=== PATIENT | male | born 1985 | race Caucasian/White ===

== ENCOUNTER 2016-10-27 22:11 | Emergency (ER) | payer SELFPAY ==
--- NOTE | 2016-10-27 22:57 | ERNOTE ---
Abdominal HPI - Narrative Date of Service: 10/27/16 - General Chief Complaint: Abdominal Pain Time Seen by Provider: 10/27/16 22:56 Source: patient - Immun/Allergies/Home Medications Immunizatons: IMMUNIZATION HX Immunizations Up to Date Yes History of Influenza Vaccine No Hx Pneumococcal Vaccination No Allergies/Adverse Reactions: Allergies No Known Allergies Allergy (Unverified 11/09/15 18:25) Home Medications: HOME MEDICATIONS Lorazepam [Ativan] 2 mg PO BID 10/27/16 [Last Taken Unknown] lamoTRIgine [Lamictal] 150 mg PO DAILY 10/27/16 [Last Taken Unknown] Dicyclomine HCl [Bentyl] 20 mg PO TID PRN #20 tablet 10/28/16 [Last Taken Unknown] - History of Present Illness Narrative: C/O O"GALLBLADDER PROBLEMS". says he ws at [facility] 3 weeks ago and was told he had gall stones . Says that ever since he got up today he has had ruq abd pain with nausea and v x 1 says at first he wasn't eating anything then about 1 hour ago decided to have a cheeseburger which did not help at all. Denies any meds. no known fever . Never had any surgery. Says he needs a work note . He has not made arrangements for f?u with anyone and may have had some similar symptoms that were not diagnosed as gallstones at that time. Review of Systems - Review of Systems Constitutional: Present: See HPI Gastrointestinal/Abdominal: Present: See HPI, nausea, vomiting, abdominal pain Genitourinary: Present: no symptoms reported Musculoskeletal: Present: no symptoms reported Skin: Present: no symptoms reported Psych: Present: anxiety All Other Systems: All systems neg except as marked - Patient's Past Medical History Patient History - Medical: No pertinent hx Patient History - Cardiac/Respiratory: No pertinent hx Patient History - Cancer: No Hx of Cancer Patient History - Surgical Procedures: No surgical history Patient History - Other: None - Social History Living Situations: alone Psych History: Hx of Anxiety, Hx of Depression Smoking Status: Current every day smoker Patient requests Smoking Cessation Consult: No Initiate information on Smoking Cessation: No Alcohol Use: rarely Drug Use: none - Immunizations Immunizations Up to Date: Yes Hx Pneumococcal Vaccination: No History of Influenza Vaccine: No Physical Exam - Physical Exam General Appearance: Present: wd/wn, alert, mild distress - holding right abd with right arm. Respiratory: Present: no respiratory distress, normal breath sounds, no accessory muscle use, chest nontender, lungs clear Cardiovascular/Chest: Present: regular rate, rhythm, no murmur, normal peripheral pulses Gastrointestinal/Abdominal: Present: normal bowel sounds, nontender, nondistended, soft, no organomegaly, tenderness - ruq tenderness, guarding. Absent: rebound Back Exam: Present: normal inspection, no CVA tenderness Skin Exam: Present: normal color. Absent: jaundice ED Progress - Results and Orders Patient's Lab Results:: I have reviewed the patient's lab results. Results and Orders: CBC AND CRP ARE NORMAL. CMP WITH GLU = 143 BUT LFT'S AND LIPASE ARE NORMAL. - Vital Signs Patient's Vital Signs:: I have reviewed the patient's vital signs. Vital Signs: Vital Signs 10/27/16 22:18 Temperature 36.7 C Pulse Rate 100 Respiratory 18 Rate Blood Pressure 141/99 O2 Sat by Pulse 100 Oximetry - CT/Ultrasound CT/Ultrasound Narrative: CT ABD /PEL PER ARGUS = WITH CONTRACTED GALLBLADDER WITH STONES . NO OTHER ABNORMALITY - Progress/Reassessment Chief Complaint: Abdominal Pain - Transfer of Care Brief History: RECORDS WERE OBTAINED FROM HIS [facility] ER VISIT ON 10 OCT 2016 WITH WBC = 13.2 AND NL DIFF. CMP = GLUC 146 AND NL. LFT'S AND ANGIE/LIP. 3 VIEW ABD = NL. ( WITH REFERENCE TO OLD CT ABD/PEL DONE 09/01/15). [place].S. GALLBLADDER = CHOLELITHIAISISBUT NO WALL THICKENING OR FLUID. . NO BILE DUCT DILATATION ( 4MM COMMON DUCT). STONE IN GALLBLADDER NECK IS NOT MOBILE. NO OTHER FINDINGS. Departure - Departure Clinical Impression: Abdominal pain Qualifiers: Abdominal location: right upper quadrant Qualified Code(s): R10.11 - Right upper quadrant pain Disposition: Home Follow Up Needed Condition: Fair Instructions: DASH Eating Plan, Cholelithiasis, Kgra-[id number], Biliary Colic, Hyperglycemia, [id number], Abdominal Pain, Adult, [id number], Hypertension, [id number]-og-Qtda, Low-Fat Diet for Pancreatitis or Gallbladder Conditions Additional Instructions: BECAUSE OF YOUR PERSISTENT GALLBLADDER SYMPTOMS YOU MAY WANT TO GET A REFERRAL TO A SURGEON BY YOUR FAMILY DOCTOR FOR DEFINITIVE TREATMENT OF THIS PROBLEM THOUGH THERE IS NO SIGN OF NEEDING ACUTE INTERVENTION TODAY. SINCE YOUR BLOOD SUGAR HAS BEEN CONSISTENTLY ELEVATED BUT ONLY IN 140 RANGE YOU SHOULD DISCUSS THIS WITH YOUR FAMILY DOCTOR WHO MAY SUGGEST FURTHER EVALUATION AND TREATMENT OF A "PRE-DIABETIC " STATE. USE CLEAR LIQUID DIET FOR THE NEXT 24 HOURS THEN INCREASE TO A LOW FAT DIET WHEN FEELING BETTER. TRIAL OF BENTYL FOR THE DISCOMFORT. I WILL ALSO GIVE YOU SOME ZOFRAN YOU HAVE HAD RECENT VOMITING AND IT COULD RECUR IN THE FUTURE. Referrals: Gerard Liu MD [Primary Care Provider] - Prescriptions: Dicyclomine HCl [Bentyl] 20 mg PO TID PRN #20 tablet PRN Reason: ABDOMINAL PAIN
[2016-10-27] MEDS ORDERED: NORMAL SALINE 1,000 ML IV ONE (23:10)
[2016-10-27] MEDS ORDERED: ONDANSETRON HCL/PF 2 MG/ML VIAL IV ONE (23:10)
[2016-10-27] MEDS ORDERED: KETOROLAC TROMETHAMINE 30 MG/ML VIAL IV ONE (23:11)
[2016-10-27 23:21] LABS: Hematocrit 50.2 % (42.0-52.0); Hemoglobin 17.3 gm/dL (13.5-18.0); Mean Cell Volume 89.2 fl (78-100); Mean Corpuscular Hemoglobin 30.7 pg (27-31); Mean Corpuscular Hgb Conc 34.5 g/dl (32-36); Mean Platelet Volume 11.1 fl (6.0-9.5); Neutrophil # 6.3 K/mm3 (1.3-6.0); Neutrophil % 59.3 % (42-75.0); Platelet Count 281 K/mm3 (150-450); Red Blood Count 5.63 M/mm3 (4.7-6.0); White Blood Count 10.6 K/mm3 (4.0-10.5)
[2016-10-27] MEDS ORDERED: ONDANSETRON HCL/PF 2 MG/ML VIAL ONE (23:31)
[2016-10-27] MEDS ORDERED: KETOROLAC TROMETHAMINE 30 MG/ML VIAL ONE (23:31)
[2016-10-27 23:34] LABS: Albumin * 4.3 gm/dl (3.4-5.0); Anion Gap 14.4 mmol/L (6.8-13.8); BUN/Creatinine Ratio 7.5 (9.0-21.6); Bilirubin, Total 0.7 mg/dL (0.0-1.1); CRP 0.3 mg/dL (0.0-0.9); Ca. Corrected For Albumin 8.6 mg/dL (8.4-10.2); Calcium * 9.2 mg/dL (7.9-10.9); Carbon Dioxide 26.6 mmol/L (24-32.6); Total Protein 7.7 gm/dL (6.2-8.2)
--- OUTSIDE RECORDS SUMMARY | 2016-10-27 23:47 | XMS REPORT | Continuity of Care Document ---
:1985 Author Organization [facility] Address [place] [address] Care Team Providers Name Role Phone Provider, None Per Patient Primary Care Provider Unavailable Source Comments This disclosure is being made pursuant to the [email or web address] program and maynot contain all information available regarding this patient.[facility] Active Allergies and Adverse Reactions No Known Allergies Current Medications Be aware that medications may not be up to date as of this document. Alwaysverify current medications with the patient. Prescription Sig. Disp. Refills Start Date End Date Status LORazepam (ATIVAN) 2 Take 2 mg by Active MG tablet mouth every 6 (six) hours as needed for Anxiety. lamotrigine (LAMICTAL) Take 150 mg by Active 150 MG tablet mouth daily. amoxicillin (AMOXIL) Take 1 oral q 8 30 capsule 0 09/17/2016 Active 500 MG capsule hours for 10 days benzonatate (TESSALON Take 1 capsule by 30 capsule 0 09/17/2016 Active PERLES) 100 MG capsule mouth every 6 (six) hours as needed for Cough. Active Problems Not on file Most Recent Encounters Date Type Specialty Providers Description 09/17/2016 Office Visit Family Medicine Maryann Orlando, Acute pharyngitis, [employer] unspecified etiology (Primary Dx); Subacute maxillary sinusitis Social History Tobacco Use Types Packs/Day Years Used Date Current Every Day Smoker Cigarettes 1 Tobacco Cessation:Ready to Quit: No; Counseling Given: Yes Comments: Last Filed Vital Signs Vital Sign Reading Time Taken Blood Pressure 130/98 09/17/2016 5:12 PM CDT Pulse 85 09/17/2016 5:12 PM CDT Temperature 35.9 C (96.7 F) 09/17/2016 5:12 PM CDT Respiratory Rate 18 09/17/2016 5:12 PM CDT Height 1.854 m (6' 1") 09/17/2016 5:12 PM CDT Weight 100.699 kg (222 lb) 09/17/2016 5:12 PM CDT Body Mass Index 29.3 09/17/2016 5:12 PM CDT Oxygen Saturation 98% 09/17/2016 5:12 PM CDT Plan of Care Health Maintenance Due Date Last Done Comments Pneumococcal Medium Risk 19-64 yo (1 of 1 - PPSV23) 01/31/2004 Tetanus/Pertussis (1 - Tdap) 01/31/2004 Influenza Immunization (#1) 2016 Results from Last 3 Months Not on file
[2016-10-28 00:35] LABS: Urine Bilirubin Negative (NEGATIVE); Urine Blood Negative /ul (NEGATIVE); Urine Ketone Negative (NEGATIVE); Urine Nitrite Negative (NEGATIVE); Urine Protein Negative (NEGATIVE); Urine Urobilinogen Normal (NORMAL); Urine pH 5.5 pH (5.0-7.0)
[2016-10-28 00:52] LABS: Urine Appearance Clear; Urine Bacteria None Seen; Urine Color Dark Yellow; Urine RBC None Seen /hpf (0-5); Urine WBC None Seen /hpf (0-5)
[2016-10-28 00:57] LABS: Cocaine Ur Negative (NEGATIVE); Urine Barbiturate Negative (NEGATIVE); Urine Benzodiazepines Negative (NEGATIVE); Urine Opiates Negative (NEGATIVE); Urine PCP Negative (NEGATIVE)
[2016-10-28 00:58] LABS: Urine THC Positive (NEGATIVE)
[2016-10-28] MEDS ORDERED: DICYCLOMINE HCL 20 MG TABLET ONE (01:11)
[2016-10-28] MEDS ORDERED: DICYCLOMINE HCL 20 MG TABLET PO ONE (01:15)
[2016-10-28 01:20] VITALS: BP 139/95
== END 2016-10-28 01:23 | disposition home or self-care (01) ==
LOC: ER 22:11
DX: R10.11 Right upper quadrant pain (principal); Z72.0 Tobacco use
CPT/HCPCS: 36415; 74170; 80053; 80307; 81001; 83690; 85025; 86140; 96374; 96375; 99284; J2405